=== PATIENT | male | born 1990 | race Caucasian/White ===

== ENCOUNTER 2018-06-16 15:15 | Emergency (ER) | payer OTHER ==
[~2018-06-16] VITALS: Ht 180.3 cm; Wt 78.0 kg
[2018-06-16 15:42] VITALS: Ht 180.3 cm; Wt 78.0 kg
[2018-06-16 17:03] VITALS: BP 136/78
== END 2018-06-16 17:03 | disposition home or self-care (01) ==
LOC: ED 15:15
DX: S52.121A Displaced fracture of head of right radius, initial encounter for closed fracture (principal); S49.91XA Unspecified injury of right shoulder and upper arm, initial encounter; S99.921A Unspecified injury of right foot, initial encounter; V29.88XA Motorcycle rider (driver) (passenger) injured in other specified transport accidents, initial encounter; Y93.I9 Activity, other involving external motion; Y92.413 State road as the place of occurrence of the external cause; Y99.8 Other external cause status